=== PATIENT | female | born 1955 | race Two or more races ===

== ENCOUNTER → 2019-01-30 | Outpatient (REF) | payer OTHER ==
[2019-01-30 13:20] LABS: CALCIUM LEVEL 9.4 MG/DL (8.8-10.2); CHOLESTEROL RISK RATIO 6.2 (<5); CREATININE FOR GFR 1.24 MG/DL (0.55-1.30); GLOMERULAR FILTRATION RATE 46.8 (>45); POTASSIUM SERUM 4.7 MEQ/L (3.5-5.1)
[2019-01-30 13:34] LABS: MALB URINE SIEMENS 34.8 MG/L
== END ==
LOC: M SFHCPLAZ 09:16
PROVIDERS: ATTEND Family Medicine
DX: E11.9 Type 2 diabetes mellitus without complications (principal); I10 Essential (primary) hypertension; Z13.220 Encounter for screening for lipoid disorders

== ENCOUNTER → 2019-03-06 | Outpatient (REF) | payer OTHER ==
[2019-03-06 11:05] LABS: CALCIUM LEVEL 9.3 MG/DL (8.8-10.2); CREATININE FOR GFR 1.11 MG/DL (0.55-1.30); GLOMERULAR FILTRATION RATE 53.2 (>45); POTASSIUM SERUM 4.4 MEQ/L (3.5-5.1)
== END ==
LOC: M SFHCPLAZ 09:15
PROVIDERS: ATTEND Family Medicine
DX: I10 Essential (primary) hypertension (principal)

== ENCOUNTER → 2020-01-22 | Outpatient (REF) | payer OTHER ==
[2020-01-22 17:54] LABS: CALCIUM LEVEL 9.5 MG/DL (8.8-10.2); CHOLESTEROL RISK RATIO 5.714 (<5); CREATININE FOR GFR 1.16 MG/DL (0.55-1.30); GLOMERULAR FILTRATION RATE 50.4 (>45); POTASSIUM SERUM 4.2 MEQ/L (3.5-5.1)
[2020-01-22 17:57] LABS: MALB URINE SIEMENS 52.3 MG/L; MAU/CREAT RATIO 50.2 MCG/MG (0.0-30.0)
[2020-01-22 18:43] LABS: HEMOGLOBIN A1c 8.3 %
== END ==
LOC: M SFHCPLAZ 13:58
PROVIDERS: ATTEND Family Medicine
DX: E11.9 Type 2 diabetes mellitus without complications (principal); I10 Essential (primary) hypertension; E78.2 Mixed hyperlipidemia

== ENCOUNTER → 2020-03-27 | Outpatient (REF) | payer MEDICAID, SELFPAY ==
[~2020-03-27] MED LIST: ATOR80TA59; GABA-843; GLIM1TAB4; LISI10TA4; METF10004; TYLETAB14 PO
== END ==
LOC: M SFHCPLAZ 11:39
PROVIDERS: ATTEND Family Medicine
DX: I10 Essential (primary) hypertension (principal); E11.9 Type 2 diabetes mellitus without complications

== ENCOUNTER 2020-04-14 10:39 | Emergency (ER) | payer MEDICAID ==
[~2020-04-14] VITALS: Ht 160 cm; Wt 60.4 kg
[2020-04-14] MEDS ORDERED: GABA-843 (10:46)
[2020-04-14] MEDS ORDERED: GLIM1TAB4 (10:46)
[2020-04-14] MEDS ORDERED: METF10004 (10:46)
[2020-04-14] MEDS ORDERED: ATOR80TA59 (10:46)
[2020-04-14] MEDS ORDERED: LISI10TA4 (10:46)
[2020-04-14] MEDS ORDERED: ACETAMINOPH W/CODEINE #3 TAB UD PO ONE (11:15)
[2020-04-14] MEDS ORDERED: TYLETAB14 PO (13:09)
[2020-04-14 13:23] VITALS: BP 177/71
--- NOTE | 2020-04-14 23:16 | REP ---
CT LUMBAR WITHOUT CONTRAST: 04/14/2020. CLINICAL HISTORY: Trauma, patient fell. TECHNIQUE: Axial images with coronal and sagittal bone window reconstructions provided. FINDINGS: Normal lumbar lordosis is noted. The disc space and all vertebral body heights from T12 through S1 were maintained. Sacral segments align normally. There is no visible sacral fracture. The SI joints were symmetric with some sclerosis at iliac margins. Sacral foramina were intact. Small marginal osteophytes are present, normal for age. Minimal disc bulges at L3-4 and L2-3 without central canal stenosis or foraminal encroachment. At the L4-5 level, there is disc bulge and ligamentum flavum hypertrophy with facet arthritis with the cross-sectional area of the canal slightly diminished. No nerve root compression in the foramina. At L5-S1, there is no spinal or foraminal stenosis. IMPRESSION: 1. Minimal spondylosis at multiple levels without disc space narrowing or compression deformity. Normal lordosis. Posterior elements intact at all levels. 2. Minor degenerative disc changes with disc bulges and some ligamentum/facet hypertrophy with marginal mild stenosis at the L4-5 central canal but no foraminal encroachment. Other levels without stenosis. Electronically Signed by Hank Weathers MD 04/15/2020 08:31 A
--- NOTE | 2020-04-14 23:19 | REP ---
CT CERVICAL SPINE WITHOUT CONTRAST, 04/14/2020. CLINICAL HISTORY: Trauma, patient fell. TECHNIQUE: Our standard trauma protocol was utilized. FINDINGS: The sagittal images show slight loss of lordosis. There is spondylosis with anterior osteophytes at C4-5 and C5-6. There are calcifications of posterior aspect of C5-6 and C6-7 levels. No compression deformity seen. The dens intact. Its relationship to the anterior arch of C1 and the lateral masses normal. The ring of C1 is intact. Craniocervical junction aligns normally. Mastoids and visualized occipital bone intact. There is no prevertebral swelling. Spinous processes, lamina, pedicles, facets, and transverse processes are without acute finding. Posterior osteophytic ridge plus calcifications in the annulus and ligament posteriorly contribute to some minor central canal stenosis at C5-6 and C6-7. There is no foraminal encroachment. The other disc levels show no stenosis. IMPRESSION: 1. There is mild central canal stenosis at C5-6 and C6-7 due to disc bulge and calcification in the annulus along with posterior osteophytes. AP canal diameter 8-9 mm at these levels. No compression fracture, foraminal encroachment, malalignment, or other finding. Electronically Signed by Hank Weathers MD 04/15/2020 08:32 A
--- NOTE | 2020-04-14 23:22 | REP ---
CT THORACIC SPINE WITHOUT CONTRAST, 04/14/2020. CLINICAL HISTORY: Trauma, patient fell. TECHNIQUE: Axial soft tissue and bone windows with coronal and sagittal reconstructions through the thoracic spine are provided. FINDINGS: The normal thoracic kyphosis is maintained. There are small marginal osteophytes. Slight disc space narrowing in some of the upper thoracic levels but no compression deformity. Trace dextroconvex curve of the upper thoracic spine. Visualized ribs and their articulations were intact. The C6-7 shows posterior osteophytic ridging and mild central canal stenosis. The thoracic levels show a small posterior osteophyte at T5-6, T6-7, T7-8, and T9-10. No spinal stenosis or foraminal encroachment. Posterior elements are intact. IMPRESSION: 1. Mild degenerative changes in the thoracic spine with small marginal osteophytes and slight disc space narrowing at some of the upper levels with small posterior osteophytes but no central canal stenosis or foraminal encroachment. 2. No compression fractures. Posterior elements intact. Posterior rib articulations intact. Electronically Signed by Hank Weathers MD 04/15/2020 08:32 A
--- NOTE | 2020-04-14 23:25 | REP ---
CT CHEST WITHOUT CONTRAST, 04/14/2020. CLINICAL HISTORY: Trauma, patient fell. FINDINGS: Standard noncontrast CT protocol for the chest. The lungs are well inflated and without infiltrate, effusion, atelectasis, or mass. There is no pneumothorax or pneumomediastinum. Heart is not enlarged. There is no pericardial thickening or effusion. The aorta is without aneurysm and has a few calcifications in the arch. There is no pathologic sized mediastinal or hilar adenopathy. The bone windows show the sternum, manubrium, clavicles, visualized portions of humeral heads and AC joints intact. There is some calcific tendinopathy about the greater tuberosity of the left humeral head. The visualized ribs show no fracture or focal lesion. The upper abdomen shows that portion of liver, spleen, gallbladder, and pancreas to be unremarkable, although none are seen in their entirety. Adrenal glands intact. Upper poles kidneys intact. Visualized aorta unremarkable. Stomach without hiatal hernia. IMPRESSION: 1. Negative CT chest. There is no fracture of ribs or other chest bony structures, and the lung childers are clear, well inflated, and without infiltrate, atelectasis, contusion, or pneumothorax. 2. The heart and mediastinal and hilar contours were normal. 3. Upper abdomen included unremarkable. Electronically Signed by Hank Weathers MD 04/15/2020 08:32 A
--- NOTE | 2020-04-14 23:27 | REP ---
BILATERAL KNEE, COMPLETE, 04/14/2020. CLINICAL HISTORY: Trauma, patient fell. FINDINGS: Five views were obtained for each knee. 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 No narrowing of the medial or lateral joint compartments. No suprapatellar effusion. Slight narrowing of the patellofemoral joint laterally and a few millimeters of lateral subluxation on the right. No fracture, focal lesion, or avulsion. IMPRESSION: 1. Tricompartment osteoarthritic change without visible or displaced fracture, joint effusion, or other acute finding. LEFT KNEE: There is tricompartment osteoarthritis with marginal osteophytes at all joint margins. These are greatest at the patellofemoral joint. No suprapatellar effusion. Spurring at the patellar tendon origin. There is some mild narrowing of the lateral aspect of the patellofemoral joint and a few millimeters lateral patellar subluxation on the sunrise view. No loose body or osteochondral defect. No avulsion. IMPRESSION: 1. Tricompartment osteoarthritic change without visible or displaced fracture, joint effusion, or other acute finding. Electronically Signed by Hank Weathers MD 04/15/2020 08:33 A
== END 2020-04-14 13:34 | disposition home or self-care (01) ==
LOC: M ED 10:39
DX: S80.00XA Contusion of unspecified knee, initial encounter (principal); S20.229A Contusion of unspecified back wall of thorax, initial encounter; W10.9XXA Fall (on) (from) unspecified stairs and steps, initial encounter; Y92.099 Unspecified place in other non-institutional residence as the place of occurrence of the external cause; Y93.9 Activity, unspecified; Y99.9 Unspecified external cause status; M51.36 Other intervertebral disc degeneration, lumbar region; M17.0 Bilateral primary osteoarthritis of knee; I10 Essential (primary) hypertension; Z79.899 Other long term (current) drug therapy